=== PATIENT | female | born 1970 | race Caucasian/White ===

== ENCOUNTER 2025-08-24 15:10 | Emergency (ER) | payer OTHER, SELFPAY ==
[2025-08-24] VITALS (8 sets, daily range): BP systolic 103–131; BP diastolic 68–90; BMI 24.8
[2025-08-24 15:34] LABS: Hematocrit 40.1 % (37.0-47.0); Hemoglobin 13.7 g/dL (12.0-16.0); Mean Corp Hgb Conc. 34.2 g/dL (33.0-37.0); Mean Corpuscular Volume 88.7 fL (81.0-99.0); Nucleated Red Blood Cells % 0 %; Platelet Count 170 10^3/uL (130-400); Red Cell Dist. Width 13.1 % (11.5-14.5)
[2025-08-24 15:55] LABS: ALT (SGPT) 19 U/L (0-35); AST (SGOT) 21 U/L (14-36); Albumin 5.0 g/dl (3.5-5.0); Alkaline Phosphatase 49 U/L (38-126); Blood Urea Nitrogen 16 mg/dl (7-17); Calcium 9.7 mg/dl (8.4-10.2); Carbon Dioxide 28 mmol/L (22-30); Chloride 102 mmol/L (98-107); Glucose 97 mg/dl (70-99); Lipase 249 U/L (23-300); Potassium 3.9 mmol/L (3.5-5.1); Sodium 139 mmol/L (135-145); Total Protein 7.6 g/dl (6.3-8.2); eGFR > 60.00
[2025-08-24] MEDS: ZOFRAN 4 MG IV (17:22)
[2025-08-24] MEDS: DILAUDID 0.5 MG IV (17:22)
[2025-08-24] MEDS: NSS 1000 IV (17:22)
--- NOTE | 2025-08-24 19:08 | ED.GENMED ---
History of Present Illness
General
Chief Complaint: Abdominal Symptoms
Source: patient
Exam Limitations: none
Time Seen by Provider: 08/24/25 16:49
Nursing documentation reviewed up to this point in time: agreed with
History of Present Illness
History of Present Illness:
Patient to the emergency department for evaluation of right upper quadrant abdominal pain. She states pain started over this weekend and continues to worsen. States she has had right upper quadrant pain in the past but not to this extent. She
states she has had a HIDA scan in the past and was told she had a lot of gallbladder sludge. She has met with general surgery and has had a discussion about scheduling cholecystectomy in the near future. She denies fever or chills. She reports
nausea but no vomiting. She has had episodes of diarrhea but states this has been ongoing for months. She states she was placed on an antibiotic by her primary care provider for this. She reports she had total resolution of the diarrhea while
taking the antibiotic however once the course of antibiotic was completed the diarrhea has returned. Brought self to the emergency department for evaluation.
Past History
Past History
ED Past Medical History: Hypothyroidism
ED Past Surgical History: Gynecological (Hysterectomy), Tonsilectomy and Other
Review of Systems
Review of Systems
Allergies reviewed?: Yes
All Other Systems: ROS reviewed and negative except as documented in HPI and ROS
Constitutional: Reports no symptoms
EENT: Reports no symptoms
Respiratory: Reports no symptoms
Cardiac: Reports no symptoms
ABD/GI: Reports abdominal pain (Right upper quadrant pain.) and diarrhea (Ongoing since April)
: Reports no symptoms
Musculoskeletal: Reports no symptoms
Skin: Reports no symptoms
Neurological: Reports no symptoms
Psychiatric: Reports no symptoms
Phy Exam
General Physical Exam
General Presentation: mild distress
General age: appears stated age
General Skin: warm and dry
General Habitus: normal
General Mental: alert
Cardiovascular Exam
Cardiovascular Exam: regular rate/rhythm and no edema
Pulmonary Exam
Pulmonary Exam: lungs clear and no respiratory distress
Gastrointestinal Exam
Gastrointestinal Exam: normal bowel sounds, soft, no organomegaly, no pulsatile mass and non distended
Palpation: left upper quadrant: Moderate tenderness, left lower quadrant: Minimal tenderness, right upper quadrant: Moderate tenderness and right lower quadrant: Minimal tenderness
Musculoskeletal Exam
Musculoskeletal Exam: full ROM and neuro vasc intact
Skin Exam
Skin Exam: normal color, warm/dry and no rash
Psychiatric Exam
Psychiatric Exam: normal mood/affect
Course
Orders/Labs/Results
Orders:
Orders
08/24/25 15:26
Complete Blood Count/With Diff Urgent
Comprehensive Metabolic Panel Urgent
Lipase Urgent
08/24/25 17:06
0.9% Sodium Chloride 1000 ml [Nss] 1,000 ml IV BOLUS
HYDROmorphone [Dilaudid] 0.5 mg IV NOW STA
Ondansetron Injectable [Zofran] 4 mg IV NOW STA
US Abdomen Complete/Upper Urgent
Comment:
Reason For Exam: Upper abd pain
08/24/25 19:57
Urinalysis Reflex To Culture Urgent
Date Specimen was Collected: 08/24/25
Time Specimen was Collected: 19:56
08/24/25 20:13
Hydrocodone 5/APAP 325 [[place] 5/325] 1 tablet PO NOW STA
08/24/25 15:26
08/24/25 15:26
Vital Signs
Initial and Last Documented VS:
Initial Vital Signs
Temp Pulse Resp BP Pulse Ox
98.1 F 89 20 131/90 100
08/24/25 15:18 08/24/25 15:18 08/24/25 15:18 08/24/25 15:18 08/24/25 15:18
Last Documented Vital Signs
Temp Pulse Resp BP Pulse Ox
98.1 F 89 20 107/73 98
08/24/25 15:18 08/24/25 15:18 08/24/25 15:18 08/24/25 20:20 08/24/25 20:20
*Radiology
Radiology exam reviewed: radiology read reviewed
*Pulse Oximetry
SaO2: 98
Oxygen Mode of Delivery: Room air
Patient hypoxic: no
*Critical Care Note
Total Time (30-74mins, 75-104mins- exclusive of procedures): Not Applicable
Update Note
Update Note:
Patient to the emergency department for evaluation of right upper quadrant pain. Pain has been ongoing for approximately 1 week. She states she has had this pain before. She also reports ongoing diarrhea. She has had diarrhea since April. Has
been treated with antibiotics by her primary care provider with resolution of her symptoms however when she completed the course of the antibiotics the diarrhea returned she has stool cultures pending at [facility]. She feels they will be resulted by
tomorrow. She denies fever or chills. On exam her vital signs are stable and she remains afebrile. WBC is 5.9 CMP is normal, UA negative for UTI. An abdominal ultrasound was performed. Results of a distended gallbladder. No other findings to
suggest acute cholecystitis. Patient has been seen by Dr. Nguyen in the recent past for her abdominal pain and for her distended gallbladder. She was also sent for an outpatient CT in July for her abdominal symptoms. CT was performed at
another facility and patient reports that there were no findings to explain her symptoms on that CT. She discussed possible cholecystectomy with Dr. Nguyen and was considering having procedure done in September. Dr. Nguyen was consulted by me
discussed presentation labs and ultrasound findings. doubtful for acute cholecystitis. Patient has a scheduled appointment with GI for further evaluation of her ongoing abdominal symptoms. Recommendation moving forward will be to complete that GI
workup, follow-up with Dr. Nguyen once workup is complete. Patient is agreeable to this. Will discharge home tonight. She was given instructions on signs and symptoms to return to the emergency department and she is agreeable to this plan..
ED Attending Note
-
Portions of this chart may have been created with voice recognition software.� Occasional wrong word or��sound alike� substitutions may have occurred due to the inherent limitations of voice recognition software.
Discharge Plan
Departure
Patient Disposition: Home (Routine Discharge)
Date of Disposition: 08/24/25
Time of Disposition: 20:10
Patient with high blood pressure during this ER visit?: No
Condition: Good
Covid-19: Not Applicable
Discharge Problem:
Abdominal pain
Instructions: Abdominal Pain
Prescriptions:
New
oxycodone 5 mg capsule
5 mg PO Q4H PRN (Reason: Pain) Qty: 10 0RF
Referrals:
Naya Ortez MD [Family Provider, Physical Medicine and Rehab] - Tomorrow
Activity Restrictions/Additional Instructions:
Follow-up with your contract project manager as scheduled. Return to the emergency department immediately for any changes in/worsening of your symptoms.
Interventions
Interventions:
*Risk Screen - Suicide Last Done: 08/24/25 15:18
*General Assessment Last Done: 08/24/25 15:18
*Neglect/Abuse Screening Last Done: 08/24/25 15:18
*ED- Fall Risk Assessment Last Done: 08/24/25 16:51
*ED COVID-19 Vaccine History Last Done: 08/24/25 16:51
*ED Influenza Vaccine History Last Done: 08/24/25 16:51
*Nursing Disposition Last Done: 08/24/25 20:23
[place]-[id number] Assessment Last Done: 08/24/25 19:37
Discharge Date and Time
Discharge Date/Time: 08/24/25 20:24
Print Language: GREENLANDIC
[2025-08-24 20:07] LABS: Urine Character Clear (Clear)
[2025-08-24] MEDS: NORCO 5/325 1 TABLET PO (20:19)
== END 2025-08-24 20:24 | disposition home or self-care (01) ==
LOC: EMR 15:10
PROVIDERS: Nurse Practitioner; EMERGENCY PHYSICIAN Student in an Organized Health Care Education/Training Program; FAMILY PHYSICIAN Internal Medicine
DX: R10.11 Right upper quadrant pain (principal); K82.8 Other specified diseases of gallbladder; E03.9 Hypothyroidism, unspecified
CPT/HCPCS: 99284; 96374; 96375; 96361; 76700; 80053; 81003; 83690; 85025